=== PATIENT | male | born 1945 | race Caucasian/White ===

== ENCOUNTER 2019-04-23 10:24 | Day surgery (SDC) | payer MEDICARE, OTHER ==
[2019-04-23] MEDS ORDERED: Depo-Medrol 40 MG/ML IM ONE (10:25)
[2019-04-23] MEDS ORDERED: DIPRIVAN 200 MG/20 ML IV ONE (10:25)
[2019-04-23] MEDS ORDERED: Ketamine HCl 50 MG/ML IV ONE (10:25)
[2019-04-23] MEDS ORDERED: Sodium Chloride 0.9(Preservative Free) 10 ML IJ ONE (10:25)
--- NOTE | 2019-04-23 12:44 | XRAY ---
Indication: L4-S1 SANDRA. Intraoperative fluoroscopy was provided for 29 seconds. 4 digital spot images submitted for interpretation demonstrates posterior needle tips projecting over the expected course of the left L4-L5 nerve roots. Small amount of contrast injected for needle tip placement. Correlate with intraoperative findings/report.
--- NOTE | 2019-04-23 12:47 | XRAY ---
29 seconds fluoroscopy time in surgery for L4-S1 SANDRA.
[2019-04-23] MEDS ORDERED: Lactated Ringers 1,000 ML IV ONE (13:06)
== END 2019-04-23 11:50 | disposition home or self-care (01) ==
LOC: SDC-PAIN 10:24
PROVIDERS: ATTEND Psychiatry & Neurology Pain Medicine
DX: M54.16 Radiculopathy, lumbar region (principal)
CPT/HCPCS: 64483; 64484; 72020; 77003; 99100; J1030; J2704; Q9966

== ENCOUNTER 2019-12-10 09:51 | Day surgery (SDC) | payer MEDICARE, OTHER ==
[2019-12-10] MEDS ORDERED: Depo-Medrol 40 MG/ML IM ONE (09:52)
[2019-12-10] MEDS ORDERED: Sodium Chloride 0.9(Preservative Free) 10 ML IJ ONE (09:52)
[2019-12-10] MEDS ORDERED: Ketamine HCl 50 MG/ML ONE (10:43)
[2019-12-10] MEDS ORDERED: DIPRIVAN 200 MG/20 ML IV ONE (10:43)
--- NOTE | 2019-12-10 12:17 | XRAY ---
Indication: Left L4-S1 transforaminal SANDRA. Intraoperative fluoroscopy was provided for 34 seconds. 4 digital spot images submitted for interpretation demonstrates posterior needle tips projecting over the expected course of the left L4 and L5 nerve roots. Small amount of contrast injected for needle tip placement. Correlate with intraoperative findings/report.
--- NOTE | 2019-12-10 12:19 | XRAY ---
34 seconds of fluoroscopy was used in surgery for a left L4-L5 and L5-S1 SANDRA.
[2019-12-10] MEDS ORDERED: Lactated Ringers 1,000 ML IV ONE (15:29)
== END 2019-12-10 11:15 | disposition home or self-care (01) ==
LOC: SDC-PAIN 09:51
PROVIDERS: ATTEND Psychiatry & Neurology Pain Medicine
DX: M54.16 Radiculopathy, lumbar region (principal)
CPT/HCPCS: 64483; 64484; 72100; 77003; 99100; J1030; J2704; Q9966

== ENCOUNTER 2023-04-19 06:57 | Day surgery (SDC) | payer MEDICARE ==
--- NOTE | 2023-04-18 14:16 | HP ---
DATE OF SURGERY: 04/19/2023 HISTORY OF PRESENT ILLNESS: The patient is a 77-year-old male presents with complaints of a right inguinal hernia. He said for a couple of months now and it bulges all of the time. It will go in when he lays down. PAST MEDICAL HISTORY: None. PAST SURGICAL HISTORY: Hernia repair. Back surgery. Colonoscopy. ALLERGIES: NKDA. MEDICATIONS: None. FAMILY HISTORY: None. SOCIAL HISTORY: Occasional alcohol. REVIEW OF SYSTEMS: CONSTITUTIONAL: Denies fever or chills. CHEST: Denies shortness of breath. CVS: Denies chest pain. ABDOMEN: Denies abdominal pain. PHYSICAL EXAMINATION: GENERAL: No acute distress. CHEST: Nonlabored. No shortness of breath. CVS: Regular rate and rhythm. ABDOMEN: Soft. IMPRESSION: Moderate right inguinal hernia. PLAN: Right inguinal hernia repair with Dr. Eric Amos. As dictated by Beba Arreaga NP.
[~2023-04-19 06:57] MED LIST: Lactated Ringers 1,000 ML IV ONE; Sensorcaine 0.25% 10 ML ONE
[2023-04-19] MEDS ORDERED: EXPAREL 133 MG/10 ML VIAL IJ ONE (06:58)
[2023-04-19] MEDS ORDERED: CEFAZOLIN 2 GM-D5W BAG** 2 GM/50 ML ML IV SCH (07:30)
[2023-04-19] MEDS ORDERED: Lactated Ringers 1,000 ML IV SCH (07:30)
[2023-04-19] MEDS ORDERED: CEFAZOLIN 2 GM-D5W BAG** 2 GM/50 ML ML IV ONE (07:34)
[2023-04-19] MEDS ORDERED: Lactated Ringers 1,000 ML IV ONE (07:34)
[2023-04-19] MEDS ORDERED: SUBLIMAZE 100 MCG/2 ML ONE (08:36)
[2023-04-19] MEDS ORDERED: Xylocaine-Mpf 2% 5 Ml Vial ONE (08:36)
[2023-04-19] MEDS ORDERED: Quelicin Fliptop 200 MG/10 ML ONE (08:36)
[2023-04-19] MEDS ORDERED: DIPRIVAN 200 MG/20 ML IV ONE (08:36)
[2023-04-19] MEDS ORDERED: Versed 2 MG/2 ML Injection ONE (08:36)
[2023-04-19] MEDS ORDERED: Zofran 4 MG/2 ML VIAL ONE (08:41)
[2023-04-19] MEDS ORDERED: Decadron 4 MG INJ ONE (08:41)
[2023-04-19] MEDS ORDERED: Pre-Attached Lta Kit TP ONE (08:58)
[2023-04-19] MEDS ORDERED: Sensorcaine 0.25% 10 ML ONE ×2 (08:58→11:12)
[2023-04-19] MEDS ORDERED: OFIRMEV 100 ML IV ONE (08:58)
[2023-04-19] MEDS ORDERED: Ephedrine Sulfate 50 MG/ML ONE (09:41)
[2023-04-19] MEDS ORDERED: ATROPINE SULFATE 1MG ONE (09:43)
[2023-04-19] MEDS ORDERED: NORCO 7.5/325 MG TAB PO PRN (11:54)
[2023-04-19 12:23] VITALS: O2SAT 95
[2023-04-19 12:25] VITALS: BP 157/71; PULSE 59
--- NOTE | 2023-04-19 13:33 | OP ---
SURGERY DATE/TIME: 04/19/2023 0924 PREOPERATIVE DIAGNOSIS: Moderate sized symptomatic right inguinal hernia. POSTOPERATIVE DIAGNOSIS: Moderate sized symptomatic right inguinal hernia. PROCEDURE: Right inguinal herniorrhaphy open with primary suture repair. No mesh. SURGEON: Eric Amos M.D. ANESTHESIA: General. COMPLICATIONS: None. CONDITION: Stable. DESCRIPTION OF PROCEDURE: The external oblique is opened. The ilioinguinal ligament was satisfactory. Suture of #0 was present. Satisfactory position. The area was closed with suture #2-0 Prolene. Satisfactory repair was present. Externally closed with 3-0 Prolene and Vicryl. The hernia sac dissected, highly ligated with 2-0 Prolene. The floor was reinforced with 2-0 Prolene. Skin reapproximated subcu 3-0 and 4-0 Vicryl. Sterile dressing applied. The patient tolerated the procedure satisfactorily.
== END 2023-04-19 12:15 | disposition home or self-care (01) ==
LOC: SDC 06:57
PROVIDERS: ATTEND Surgery
DX: K40.90 Unilateral inguinal hernia, without obstruction or gangrene, not specified as recurrent (principal)
CPT/HCPCS: 64486; 76942; 99100; J0330; J0461; J0690; J1100; J2250; J2405; J2704; J3010; A9270-GY